=== PATIENT | male | born 2000 | race Caucasian/White ===

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

== ENCOUNTER 2022-02-22 05:27 | Emergency (ER) | payer OTHER ==
[~2022-02-22] VITALS: Ht 185.4 cm; Wt 114.3 kg
[2022-02-22] MEDS ORDERED: SODIUM CHLORIDE 0.9% 1000ML 1,000 ML IV STA (05:46)
[2022-02-22] MEDS ORDERED: MAALOX MAXIMUM355 ML PO (05:52)
[2022-02-22] MEDS ORDERED: ONDANSETRON ODT4 MG PO (05:52)
[2022-02-22] MEDS ORDERED: FAMOTIDINE20 MG PO (05:52)
[2022-02-22] MEDS ORDERED: FAMOTIDINE 20 MG/2 ML VIAL IV ONE ×2 (06:00→06:02)
[2022-02-22] MEDS ORDERED: KETOROLAC TROMETHAMINE 30 MG/ML VIAL IV ONE (06:00)
[2022-02-22] MEDS ORDERED: ONDANSETRON HCL INJ 2MG/ML 2ML 2 MG/ML VIAL IV ONE (06:00)
[2022-02-22] MEDS ORDERED: ONDANSETRON HCL INJ 2MG/ML 2ML 2 MG/ML VIAL ONE (06:01)
[2022-02-22] MEDS ORDERED: KETOROLAC TROMETHAMINE 30 MG/ML VIAL ONE (06:02)
[2022-02-22] MEDS ORDERED: SODIUM CHLORIDE 0.9% 1000ML 1,000 ML ONE (06:02)
[2022-02-22] MEDS ORDERED: PROMETHAZINE 25MG/ NS 50ML (IV) IV ONE (06:45)
[2022-02-22] MEDS ORDERED: DIPHENHYDRAMINE HCL INJ 50 MG/ML VIAL IV ONE (06:45)
[2022-02-22] MEDS ORDERED: PROMETHAZINE HCL (IM) 25 MG/ML VIAL IM ONE (06:47)
[2022-02-22] MEDS ORDERED: SODIUM CHLORIDE 0.9% 250ML 250 ML ONE (06:48)
== END 2022-02-22 07:27 | disposition home or self-care (01) ==
LOC: FSED 05:41
DX: R11.2 Nausea with vomiting, unspecified (principal); K52.9 Noninfective gastroenteritis and colitis, unspecified; F17.210 Nicotine dependence, cigarettes, uncomplicated
CPT/HCPCS: 80053; 81003; 85025; 99283; J1200; J1885; J2405; J2550; J7030; J7050